=== PATIENT | male | born 1945 | race Caucasian/White ===

== ENCOUNTER 2016-10-18 01:27 | Emergency (ER) | payer MEDICARE ==
[~2016-10-18] VITALS: Ht 172.7 cm; Wt 65.9 kg
[~2016-10-18 01:27] MED LIST: CITA10TA14 PO; ZOC20 PO; [UNRECOGNIZED DRUG - CODE] PO
[2016-10-18 01:31] VITALS: BP 164/76; PULSE 68; RESP 22; O2SAT 95
--- NOTE | 2016-10-18 01:40 | ED.REPORT ---
HPI-General Illness Date of Service Oct 18, 2016 ED Provider: Андрей Mares MD 71 y/o male with a hx of dystonia presents to the ED complaining of constipation for the last two days. Associated sx include rectal pain during a BM. He states he has been eating a lot of blue berries lately. He has not used a stool softener for his sx. The pt also complains of increased urinary frequency, dry lips with upper lip swelling. He denies dysuria and any other sx at this time. Nursing Notes Stated Complaint: LIPS AND MOUTH SWELLING AND NUMB Chief Complaint: General Complaint Nursing Notes Reviewed: Yes Allergies: Coded Allergies: hydrocodone bitartrate (Verified Adverse Reaction, Mild, 10/18/16) Ovando odd did not like how medication made him feel Uncoded Allergies: SULFA (Allergy, Severe, Hives, 02/28/11) Scheduled Azithromycin (Zithromax) 250 Mg Tab 500 MG PO DAILY Simvastatin-Expunged Drug, Choose New Med! (Simvastatin-Expunged Drug, Choose New Med!) 20 Mg Tablet 20 MG PO HS Scheduled PRN Docusate Sodium (Colace) 100 Mg Capsule 100 MG PO BID PRN PRN For Constipation Miscellaneous Medications Citalopram-Expunged Drug, Do Not Renew! (Citalopram-Expunged Drug, Do Not Renew! ) 10 Mg Tablet 10 MG PO General Time Seen by MD: 01:37 Chief Complaint Other (constipation) Hx Obtained From: Patient Arrived By: Walk-in Sudden in Onset?: No Onset Occurred: 2 days ago Symptom Duration: Since onset Quality: Painful (rectum) Severity: Current: Mild Severity: Maximum: Mild Recent Healthcare: No recent doctor visit Past Medical History Past Medical History Arthritis Past Surgical History inguinal hernia repair Smoking History Unknown if Ever Smoker Ambulatory Status Independent Review of Systems Reports: rectal pain due to constipation Reports: dry lips Reports: upper lip swelling Full Review of Systems GI: Reports: Constipation Male: Reports Urinary frequency, Denies Dysuria Complete sys rev & neg: except as marked. Physical Exam Vital Signs Vital Signs Date Time Temp Pulse Resp B/P Pulse Ox O2 Delivery O2 Flow Rate FiO2 10/18/16 03:58 36.6 69 18 156/70 96 Room Air 10/18/16 01:31 36.5 68 22 164/76 95 Room Air Initial VS: Reviewed Head / Eyes: Atraumatic, Normocephalic Neck: Supple, Non-tender, Full range of motion Respiratory: Breath sounds normal, Clear to auscultation, No respiratory distress Cardiovascular: Regular rate & rhythm, Heart sounds normal, Intact distal pulses Abdomen / GI: Soft, Non-tender Extremities: Vascular intact, Neuro intact, No swelling, No tenderness Skin: Warm, Dry, No cyanosis Neurologic: Alert, Oriented, Nonfocal General/Constitutional: Awake, Alert, No acute distress, Cooperative ENT: Atraumatic, Airway patent Chapped lips Mild upper lip swelling Re-Eval/Medical Decision Med Decision/Clinical Course 71-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 Given milk of magnesia to black suppository with good results. A and D ointment applied to the lip with improvement. Discharged in stable condition. Source of Hx: Old records Time of Eval: 02:07 Re-Evaluation/Progress Note: Rechecked pt. Discussed diagnosis and plan to discharge. Pt understands and agrees with the plan. F/U instruction and RTER warning given. All questions addressed. Counseled Regarding: Diagnosis, Need for follow-up, When/why to return to ED Discharge & Departure Primary Impression: Constipation Constipation type: other constipation type Qualified Code: K59.09 - Other constipation Disposition: Home Discharge Condition All VS Reviewed: Yes Condition: Stable Patient Instructions: Constipation (ED) Additional Instructions: Begin a stool softener twice daily for the indefinite future. Some of your fluid replacement should consist of electrolyte replacement solution, such as Pedialyte or Gatorade or similar. Keep your upper lip coated to prevent drying. Commercially available lip balm will be adequate. Follow-up with your doctor in the office. Call Dr. Rosado this morning for follow-up this week. Referrals: Bessy Rosado MD (PCP) Scribe Attestation Portions of this note were transcribed by Rafael Menjivar. I,, personally performed the history, physical exam and medical decision-making;I reviewed and confirmed the accuracy of the information in the transcribed note. Signed by Concepcion Arteaga. 10/18/16 copies to: Bessy Rosado MD, Christopher W MD Oct 18, 2016 01:40 Rafael Menjivar Oct 18, 2016 01:55
[2016-10-18] MEDS ORDERED: A & D 42.5 Gm Ointment TOPICAL PRN (02:10)
[2016-10-18] MEDS ORDERED: Magnesium Hydroxide 10 mL Oral Concentration PO ONE (02:10)
[2016-10-18] MEDS ORDERED: DOCU-41 PO (03:48)
[2016-10-18 03:58] VITALS: BP 156/70; PULSE 69; RESP 18; O2SAT 96
== END 2016-10-18 03:59 | disposition home or self-care (01) ==
LOC: SED 01:27
DX: K59.00 Constipation, unspecified (principal); R35.0 Frequency of micturition; L98.8 Other specified disorders of the skin and subcutaneous tissue; R22.0 Localized swelling, mass and lump, head; Z88.8 Allergy status to other drugs, medicaments and biological substances; Z88.2 Allergy status to sulfonamides